=== PATIENT | female | born 1940 | race Native Hawaiian/Other Pacific Islander ===

== ENCOUNTER 2021-09-25 10:29 | Outpatient (CLI) | payer OTHER | END 2021-09-25 23:07 | disposition home or self-care (01) | LOC: MRI 10:29 | PROVIDERS: ATTEND Nurse Practitioner Family | DX: R68.89 Other general symptoms and signs (principal); R41.82 Altered mental status, unspecified | CPT/HCPCS: 36415; 82565; 84520; A9576 ==